=== PATIENT | female | born 1995 | race Caucasian/White ===

== ENCOUNTER → 2018-04-20 13:39 | Outpatient (CLI) | payer BC, SELFPAY ==
[2018-04-20 18:15] LABS: Chlamydia Trachomatis by PCR POSITIVE (Negative); Neisserai gonorrhoeae by PCR Negative (Negative); Probe Check PASS
[2018-04-23 10:02] LABS: HPV Reflexed? NOT INDICATED
== END ==
PROVIDERS: Visit Provider Obstetrics & Gynecology
DX: Z12.4 Encounter for screening for malignant neoplasm of cervix (principal); Z11.3 Encounter for screening for infections with a predominantly sexual mode of transmission
CPT/HCPCS: 87491; 87591; 88175; G0145

== ENCOUNTER → 2018-05-04 14:35 | Outpatient (CLI) | payer BC, SELFPAY ==
[2018-05-04 15:50] LABS: Color, Urine Yellow (Yellow); Glucose, Dipstick Normal (Normal); Ketone-Dipstick Negative (Negative); Leukocyte Esterase-Dipstick 25 /ul (Negative); Nitrite-Dipstick Negative (Negative); Occult Blood-Urine Negative /ul (Negative); Protein-Dipstick Negative (Negative); Urine Bilirubin Dipstick Negative (Negative); Urine Clarity Clear (Clear); Urine Urobilinogen Normal (Normal); Urine pH 6.5 (5.0 - 8.0)
[2018-05-04 15:51] LABS: Absolute Lymphocyte Count 2.16 X10^3/ul (0.83-4.51); Absolute Neutrophil Count 6.7 X10^3/uL (2.0-7.7); Basophil# 0.02 X10^3/uL; Basophil% 0.2 % (0-1); Eosinophil# 0.02 X10^3/uL; Eosinophils% 0.2 % (0-5); Hematocrit 43.2 % (37-47); Lymphocyte # 2.16 X10^3/ul (4.0); Lymphocyte % 22.8 % (19-41); Mean Corp Hgb Conc 32.4 g/gl (32-36); Mean Corpuscular Hgb 29.5 pg (27.0-32.0); Mean Corpuscular Volume 90.9 fL (81-99); Mean Platelet Vol. 10.4 fl (6.2-12.0); Monocyte# 0.54 X10^3/uL; Monocyte% 5.7 % (0-10); Neutrophil # 6.73 X10^3/uL (2.7-7.7); Platelet Count 408 K/mm3 (150-450); RBC Distribution Width CV 14.4 % (11.6-14.6); RBC Distribution Width SD 47.6 fl (35.1-43.9); Red Blood Count 4.75 M/mm3 (4.2-5.4); White Blood Count 9.5 K/mm3 (4.4-11.0)
[2018-05-04 16:10] LABS: POSITIVE COUNT NO; POSITIVE DIFFERENTIAL NO; POSITIVE MORPHOLOGY NO; Thyroid Stim Hormone (TSH) 0.13 uIU/mL (0.358-3.74)
[2018-05-04 16:46] LABS: HIV - WCH Non-Reactive (Nonreactive); Rubella IgG 147.1 IU/mL
[2018-05-04 17:43] LABS: Amphetamine Urine VISTA NEGATIVE (<1000 ng/mL); Barbiturate Urine VISTA NEGATIVE (< 200 ng/mL); Benzodiazepine Urine VISTA NEGATIVE (< 200 ng/mL); Cocaine Urine VISTA NEGATIVE (< 300 ng/mL); Ecstacy Urine VISTA NEGATIVE (< 500 ng/mL); Methadone Urine VISTA NEGATIVE (< 300 ng/mL); PCP Urine VISTA NEGATIVE (< 25 ng/mL); THC Urine VISTA NEGATIVE (< 50 ng/mL); Vista UDS pH Range 7
[2018-05-04 18:41] LABS: Free T3 3.3 pg/mL (2.18-3.98); T4 Free Direct 1.01 ng/dL (0.76-1.46)
[2018-05-06 20:19] LABS: Prenatal RPR NONREACTIVE (NONREACTIVE)
[2018-05-07 09:10] LABS: HEPATITIS B SURFACE AG Negative (Negative); Hep C Antibodies <0.1 s/co ratio (0.0-0.9)
== END ==
PROVIDERS: Visit Provider Obstetrics & Gynecology
DX: Z34.81 Encounter for supervision of other normal pregnancy, first trimester (principal)
CPT/HCPCS: 36415; 80307; 81002; 84439; 84443; 84481; 85025; 86703; 86762; 86803; 87340

== ENCOUNTER → 2018-06-30 | Outpatient (CLI) | payer BC, SELFPAY ==
[2018-06-30 20:34] LABS: Chlamydia Trachomatis by PCR Negative (Negative); Neisserai gonorrhoeae by PCR Negative (Negative); Probe Check PASS; Sample Adequacy Control PASS; Specimen Processing Control PASS
== END | disposition home or self-care (01) ==
LOC: LABSPEC 13:33
PROVIDERS: Visit Provider Obstetrics & Gynecology
DX: Z34.82 Encounter for supervision of other normal pregnancy, second trimester (principal); Z11.3 Encounter for screening for infections with a predominantly sexual mode of transmission
CPT/HCPCS: 87491; 87591

== ENCOUNTER → 2018-09-03 | Outpatient (CLI) | payer BC, SELFPAY ==
[2018-09-03 10:58] LABS: Hematocrit 37.6 % (37-47); Hemoglobin 12.1 g/dl (12.0-15.0); Mean Corp Hgb Conc 32.2 g/gl (32-36); Mean Corpuscular Hgb 28.9 pg (27.0-32.0); Mean Corpuscular Volume 89.7 fL (81-99); Mean Platelet Vol. 10.9 fl (6.2-12.0); Platelet Count 325 K/mm3 (150-450); RBC Distribution Width CV 14.3 % (11.6-14.6); RBC Distribution Width SD 45.8 fl (35.1-43.9); Red Blood Count 4.19 M/mm3 (4.2-5.4); White Blood Count 10.3 K/mm3 (4.4-11.0)
[2018-09-03 11:00] LABS: Scan Indicated on CBC? Y/N NO
[2018-09-03 11:03] LABS: Glucose Challenge Gest 1H 50g 125 mg/dL (70-140)
== END | disposition home or self-care (01) ==
PROVIDERS: Visit Provider Obstetrics & Gynecology
DX: Z34.82 Encounter for supervision of other normal pregnancy, second trimester (principal)
CPT/HCPCS: 36415; 82950; 85027

== ENCOUNTER → 2018-11-12 15:59 | Outpatient (CLI) | payer BC, MEDICAID, SELFPAY | PROVIDERS: Visit Provider Obstetrics & Gynecology | DX: Z36.85 Encounter for antenatal screening for Streptococcus B (principal) | CPT/HCPCS: 87077; 87081; 87186 ==

== ENCOUNTER 2018-11-17 12:15 | Inpatient (IN) | payer BC, MEDICAID, SELFPAY ==
[2018-11-17 13:00] VITALS: BMI 43.2
[2018-11-17] MEDS: Lactated Ringers 1,000 ML 50 ML IV (13:30)
[2018-11-17 13:42] LABS: Absolute Lymphocyte Count 2.18 X10^3/uL (0.83-4.51); Absolute Neutrophil Count 8.3 X10^3/uL (2.0-7.7); Basophil# 0.04 X10^3/uL; Basophil% 0.4 % (0-1); Eosinophil# 0.01 X10^3/uL; Eosinophils% 0.1 % (0-5); Hematocrit 40.2 % (37-47); Hemoglobin 12.9 g/dL (12.0-15.0); Lymphocyte # 2.18 X10^3/ul (4.0); Lymphocyte % 19.2 % (19-41); Mean Corp Hgb Conc 32.1 g/dL (32-36); Mean Corpuscular Hgb 28.9 pg (27.0-32.0); Mean Corpuscular Volume 90.1 fL (81-99); Mean Platelet Vol. 10.9 fl (6.2-12.0); Monocyte# 0.73 X10^3/uL; Monocyte% 6.4 % (0-10); NRBC Flagged by Analyzer 0 % (0-5); Neutrophil # 8.32 X10^3/uL (2.7-7.7); Neutrophil % 73.3 % (47-70); Platelet Count 314 K/mm3 (150-450); RBC Distribution Width CV 15.1 % (11.6-14.6); RBC Distribution Width SD 49.9 fl (35.1-43.9); Red Blood Count 4.46 M/mm3 (4.2-5.4); White Blood Count 11.4 K/mm3 (4.4-11.0)
[2018-11-17] MEDS: miSOPROStol 25 MCG TABLET PO (14:29)
--- NOTE | 2018-11-17 18:24 | PCM.HPOB.BLA ---
History and Physical Date of Admission: 11/17/18 OB HISTORY AND PHYSICAL EXAMINATION History of this : 23 yo female Ab0 with EDC 11/30/2018 by 10 weeks 0 days Ultrasound, presents to Labor and Delivery for induction of labor at 38 1/7 wk with oligohydramnios on ultrasound today in office. KIRSTY 1.2 cm EFW 7# 7 oz. NST reactive. care remarkable for - O positive. Rubella immune. GBS positive. 1.) FOB has an 8 year old son, 2.) TSH low normal free T3 and free T4. 3.) Undecided about MSAFP at NOB visit, declines CF testing. 4.) Hx of depression 5.) history of Chlamydia this , treated. SLIME neg June 2018 Pertinent Past Medical History: As above. Allergies: No Known Drug Allergies Medications: During - azithromycin 500 mg tablet; + DHA 28 mg iron- 975 mcg-200 mg combo pack; Zoloft 50 mg tablet Review of Systems: Non-contributory PHYSICAL EXAMINATION General Appearance: 23 yo female in no acute distress Vital Signs: AF, VSS Heart: RRR without rubs or gallops Lungs: CTA x 2 Breasts: deferred Abdomen: gravid Cervix: 1 cm/ 75/-3 midpostion, midconsistency Presentation: cephalic Fetus: Size: AGA 7# 7 oz. EFW on ultrasound today. Movement: present Heart: 120-130 avg variability Accels. Occasional prolonged accel to 140-150s No regular UCs Impression /Plan: Intrauterine Oligohydramnios with BPP 8/10 (-2 for KIRSTY) Induction of labor. Cytotec planned. Advised potential risk of C/S , intolerance of labor reviewed. Discussed other methods of induction All questions answered to patient's satisfaction and consents signed. OB dept aware of induction. H and P generated at admission date. See progress notes for changes Hanh Emmanuel MD 11/17/18 [id number]
[2018-11-17] MEDS: miSOPROStol 50 MCG TABLET PO (18:52)
--- NOTE | 2018-11-17 19:24 | PN.OBGYN_ITS ---
Subjective: Resting in bed, feels mild cramping, family bedside and supportive Objective: AVSS FHts: 130 baseline, moderate variability with accels, no decels UCs: none Cervix: 1/60/-3 at 1830 per RN - Physical Exam General: Alert, Oriented x3, Cooperative, No apparent distress HEENT: PERRLA, EOMI Oral: Moist Mucosa Neck: Supple Lungs: Clear to auscultation, Normal air movement Cardiovascular: Regular rate, Regular Rhythm Abdomen: Bowel Sounds Present, Soft, Non Tender, Non-Distended, Gravid, Obese Extremities: Capillary Refill Less than 3 Seconds Musculoskeletal: No Tenderness to Palpation of Joints or Extremities Neurological: Cranial nerves II-XII grossly intact, Deep Tendon Reflexes 2+/4 and Symmetrical Psych/Mental Status: Normal Affect, Appropriate, Alert and oriented to time, place, person, mood and affect Weight: 276 lb 0.3 oz Body Mass Index (BMI) 43.2 Laboratory Tests Past 24 Hrs 11/17/18 11/17/18 13:25 13:25 WBC 11.4 H RBC 4.46 Hgb 12.9 Hct 40.2 MCV 90.1 MCH 28.9 MCHC 32.1 RDW Std Deviation 49.9 H RDW Coeff of [place] 15.1 H Plt Count 314 MPV 10.9 Immature Gran % (Auto) 0.600 Neut % (Auto) 73.3 H Lymph % (Auto) 19.2 [place] % (Auto) 6.4 Eos % (Auto) 0.1 Baso % (Auto) 0.4 Absolute Neuts (auto) 8.3 H Absolute Lymphs (auto) 2.18 Nucleated RBC % 0 Blood Type O POSITIVE Antibody Screen NEGATIVE Medical Necessity - Tobacco Use Smoking Status: Former smoker Assessment/Plan Assesment: 23yo at 38w1d gestation BMI >40 Oligohydramnios Cat 1 FHTs Plan: Cytotec has been started Continuous EFM Close observation AROM and Pitocin when Reed score appropriate Anticipate vaginal delivery
[2018-11-17] MEDS: Acetaminophen 325 MG Tablet PO (19:52)
[2018-11-18] MEDS: Acetaminophen 325 MG Tablet PO ×2 (00:07→08:04)
[2018-11-18] MEDS: miSOPROStol 50 MCG TABLET PO (00:45)
[2018-11-18] MEDS: 0.9% Saline Lock 10 ML Syringe IV (04:05)
[2018-11-18] MEDS: Nalbuphine 10 MG/ML Ampul IV ×2 (04:16→08:11)
--- NOTE | 2018-11-18 05:48 | PCM.PN.BLA ---
Progress Note LABOR PROGRESS NOTE 38 2/7 wk oligo AGA Cytotec induction EFM 120-130s with avg variability , accels. UCs - none noted on monitor A/P: 38 2/7 wk Oligo. Will hold Cytotec, Begin Pitocin per protocol as next step. De Dios bulb vs AROM -- exam at am rounds with
[2018-11-18] MEDS: 0.9% Normal Saline 100 ML IV.SOLN. IY (07:25)
--- NOTE | 2018-11-18 07:31 | PCM.PN.BLA ---
Progress Note LABOR INDUCTION 38 2/7 wk EGA Oligo KIRSTY 1.2 cm EFM reassuring all night. 120-130s with accels. Nubain given for sleep, cramping UCs none noted on monitor CX: 1-2/75/-3 Vtx well applied to cervix. De Dios bulb inserted (#20) and 30 cc fluid to inflate balloon Balloon seated beneath vtx and cervix on exam A/P: 38 2/7 wk Induction oligo. Primip. Cytotec overnight Softer cervix noted this am. No other change. De Dios bulb and Pitocin orders given, on chart. Continue induction. Watch progress, descent
[2018-11-18] MEDS: Oxytocin 30 units/NS 500 ml 30 UNITS/500 ML IV.SOLN IV (08:09)
--- NOTE | 2018-11-18 09:52 | PCM.PN.OB ---
Objective: LABOR PROGRESS NOTE: 38 2/7 wk oligo AGA IOL now with cervical mcclure/pitocin following Cytotec cervical ripening FHTs: 120 baseline, moderate variablity with accels, no decels UCs:Q 3-5 minutes with accels, no decels Cervix: 4 /75/-3 with mcclure recently out per RN Pitocin: at 6 mu per RN - Physical Exam Weight: 276 lb 0.3 oz Body Mass Index (BMI) 43.2 Intake and Output for Last 24 Hours 11/16/18 11/17/18 11/18/18 23:59 23:59 23:59 Intake Total 325.00 / 325.00 1600 / 1600 Balance 325.00 / 325.00 1600 / 1600 Laboratory Tests Past 24 Hrs 11/17/18 11/17/18 13:25 13:25 WBC 11.4 H RBC 4.46 Hgb 12.9 Hct 40.2 MCV 90.1 MCH 28.9 MCHC 32.1 RDW Std Deviation 49.9 H RDW Coeff of [place] 15.1 H Plt Count 314 MPV 10.9 Immature Gran % (Auto) 0.600 Neut % (Auto) 73.3 H Lymph % (Auto) 19.2 [place] % (Auto) 6.4 Eos % (Auto) 0.1 Baso % (Auto) 0.4 Absolute Neuts (auto) 8.3 H Absolute Lymphs (auto) 2.18 Nucleated RBC % 0 Blood Type O POSITIVE Antibody Screen NEGATIVE Medical Necessity - Tobacco Use Smoking Status: Former smoker Assessment/Plan A/P: 38 2/7 wk Oligo Early labor Cat 1 FHTs
[2018-11-18] MEDS: Lactated Ringers 500 ML 999 ML IV (10:28)
[2018-11-18] MEDS: Lactated Ringers 1,000 ML 200 ML IV ×2 (12:00→17:34)
[2018-11-18] MEDS: fentaNYL-bupivacaine (epidural) 100 ML BAG EPIDURAL ×2 (12:20→17:34)
--- NOTE | 2018-11-18 13:29 | PCM.PN.OB ---
Subjective: This is a late entry for 11/18/2018 1053 Feeling mild cramping, denies need for epidural; has not taken prescribed Zoloft for several days, does not have own supply with her and is asking for a dose to be provided via hospital pharacy; Stepmother bedside and supportive Objective: FHTs: 120 baseline with moderate variability, accels present, no decels UCs: Q 2-3 minutes - difficult to trace r/t patient body habitus Cervix: 4/75/-2, soft, mid-position Pitocin: 8mu - Physical Exam General: Alert, Oriented x3, No apparent distress Neurological: Cranial nerves II-XII grossly intact Psych/Mental Status: Normal Affect, Appropriate, Alert and oriented to time, place, person, mood and affect Weight: 276 lb 0.3 oz Body Mass Index (BMI) 43.2 Intake and Output for Last 24 Hours 11/16/18 11/17/18 11/18/18 23:59 23:59 23:59 Intake Total 325.00 / 325.00 1601 / 1601 Balance 325.00 / 325.00 1601 / 1601 Laboratory Tests Past 24 Hrs 11/17/18 11/17/18 13:25 13:25 WBC 11.4 H RBC 4.46 Hgb 12.9 Hct 40.2 MCV 90.1 MCH 28.9 MCHC 32.1 RDW Std Deviation 49.9 H RDW Coeff of [place] 15.1 H Plt Count 314 MPV 10.9 Immature Gran % (Auto) 0.600 Neut % (Auto) 73.3 H Lymph % (Auto) 19.2 [place] % (Auto) 6.4 Eos % (Auto) 0.1 Baso % (Auto) 0.4 Absolute Neuts (auto) 8.3 H Absolute Lymphs (auto) 2.18 Nucleated RBC % 0 Blood Type O POSITIVE Antibody Screen NEGATIVE Medical Necessity - Tobacco Use Smoking Status: Former smoker Assessment/Plan Assessment: 38 2/7 wk oligo AGA Group B positive Early labor Cat 1 FHTs Plan: AROMed for small amount of clear fluid IUPC and FSE placed Continue pitocin to maintain adequate labor Continue Group B Prophylaxis May have epidural upon request Zoloft, 50mg PO x1 Close observation Anticipate vaginal delivery
[2018-11-18] MEDS: Sertraline 50 MG Tablet PO (14:23)
--- NOTE | 2018-11-18 14:28 | PCM.PN.OB ---
Subjective: Discussion with patient's RN, patient is comfortable with epidural; stepmother and father remain at bedside and supportive Objective: FHTs: 130 baseline with moderate variability, accels present, no decels UCs: Q 2-4 minutes Cervix: 5/75/-2, soft, mid position at 1300 per RN Pitocin at 8mu per RN - Physical Exam Weight: 276 lb 0.3 oz Body Mass Index (BMI) 43.2 Intake and Output for Last 24 Hours 11/16/18 11/17/18 11/18/18 23:59 23:59 23:59 Intake Total 325.00 / 325.00 2552.77 / 2552.77 Balance 325.00 / 325.00 2552.77 / 2552.77 Laboratory Tests Past 24 Hrs 11/17/18 13:25 Blood Type O POSITIVE Antibody Screen NEGATIVE Medical Necessity - Tobacco Use Smoking Status: Former smoker Assessment/Plan Assessment: 38 2/7 wk oligo AGA Group B positive Cat 1 FHTs Plan: Continue pitocin to maintain adequate labor Continue Group B prophylaxis Close montoring Anticipate vaginal delivery
--- NOTE | 2018-11-18 18:18 | PCM.PN.OB ---
Subjective: Resting in bed, comfortable with epidural; father and stepmother at bedside and supportive Objective: AVSS FHTs: 150 baseline, moderate variability with late decels UCs: Q 1-4 minutes, resolving tachysystole Pitocin: Off Cervix: 4.5/100/-2 per RN at 1658 - Physical Exam General: Alert, Oriented x3, Cooperative Neurological: Cranial nerves II-XII grossly intact Psych/Mental Status: Normal Affect, Appropriate, Alert and oriented to time, place, person, mood and affect Weight: 276 lb 0.3 oz Body Mass Index (BMI) 43.2 Intake and Output for Last 24 Hours 11/16/18 11/17/18 11/18/18 23:59 23:59 23:59 Intake Total 325.00 / 325.00 3602.77 / 3602.77 Balance 325.00 / 325.00 3602.77 / 3602.77 Medical Necessity - Tobacco Use Smoking Status: Former smoker Assessment/Plan Assessment: 38 2/7 wk oligo AGA Group B positive Cat 2 FHTs Plan: Consult with Dr. Emmanuel Keep pitocin off at this time Position changes, IV fluids, and O2 per facemask PRN to maintain FHR stability Continue Group B prophylaxis Close monitoring
--- NOTE | 2018-11-18 18:30 | PCM.PN.BLA ---
Progress Note 38 2/7 wk induction for oligohydramnios Comfortable w/ epidural AVSS Pitocin off due to recurrent late decelerations, tachy IFM: 120-130s earlier, accels variables early decelerations. Periods of inc variability, hypervariability. Then to period of lates during tachysystole. Pitocin off and FHR in 130-140s avg variability and accels. UCs q 3-4 mins Cx: 6/80/-1 at last check A/P: 39 2/7 wk oligo. Pitocin off and position changes, O2 on. Will observe for adequacy of UCs, and for tolerance of continued labor w/o Pitocin >
[2018-11-18] MEDS: Ondansetron 4 MG/2 ML Vial IV (18:58)
--- NOTE | 2018-11-18 19:40 | PCM.PN.OB ---
Subjective: Comfortable with epidural; nausea and vomiting resolving after a dose of Zofran; father and stepmother at bedside and supportive Objective: AVSS FHTs: 145 baseline with accels, and early decels; one deceleration to 115bpm over 2 minutes after an episode of vomiting, back to baseline over the next two minutes, FHR variability maintained; UCs: Q 4-6 minutes Pitocin: off Cervix: /-2 at 1922 per RN - Physical Exam General: Alert, Oriented x3, Cooperative Neurological: Cranial nerves II-XII grossly intact Psych/Mental Status: Normal Affect, Appropriate, Alert and oriented to time, place, person, mood and affect Weight: 276 lb 0.3 oz Body Mass Index (BMI) 43.2 Intake and Output for Last 24 Hours 11/16/18 11/17/18 11/18/18 23:59 23:59 23:59 Intake Total 325.00 / 325.00 3957.44 / 3957.44 Output Total 450 / 450 Balance 325.00 / 325.00 3507.44 / 3507.44 Medical Necessity - Tobacco Use Smoking Status: Former smoker Assessment/Plan Assessment: 38 2/7 wk oligo AGA Group B positive Cat 1 FHTs Plan: Consult with Dr. Emmanuel May restart pitocin, titrate to achieve adequate contraction pattern Continue Group B prophylaxis Close monitoring
--- NOTE | 2018-11-18 21:27 | PCM.PN.OB ---
Subjective: Comfortable with epidural; father bedside and supportive Objective: AVSS FHTs: 140 baseline, moderate variability with late decelerations UCs: Q 4-5 Cervical exam: deferred - Physical Exam General: Alert, Oriented x3, Cooperative Neurological: Cranial nerves II-XII grossly intact Psych/Mental Status: Normal Affect, Appropriate, Alert and oriented to time, place, person, mood and affect Weight: 276 lb 0.3 oz Body Mass Index (BMI) 43.2 Intake and Output for Last 24 Hours 11/16/18 11/17/18 11/18/18 23:59 23:59 23:59 Intake Total 325.00 / 325.00 4007.44 / 4007.44 Output Total 450 / 450 Balance 325.00 / 325.00 3557.44 / 3557.44 Medical Necessity - Tobacco Use Smoking Status: Former smoker Assessment/Plan Assessment: 38 2/7 wk oligo AGA Non reassuring status, inability to tolerate labor Group B positive Cat 2 FHTs Plan: Dr. Emmanuel in Decision for c/section, non emergent
--- NOTE | 2018-11-18 21:30 | DCINST_ITS ---
Discharge Diet: No Restrictions Discharge Activity: May not drive while taking narcotic pain medications., May Shower, May Take a Tub Bath May resume sexual activity in: 4-6 weeks Lifting Restrictions: 20 pounds Additional Activity Instructions:: Nothing in the vagina for 4-6 weeks. You may return to work/school in 6 weeks. Change Dressing in (Days):: 7 Remove Dressing in (days):: 7 Cleanse incision/area with: Soap & Water, Keep Dressing Clean & Dry Additional Instructions: If you experience any of the following, contact your healthcare provider. * Bleeding that soaks a pad every hour for 2 hours * Fever 100.4 or higher * Unrelieved incision or abdominal pain * Swelling, redness, discharge or bleeding from your incision * Problems urinating (including inability to urinate or burning while urinating). * Visual changes * Severe headache * Flu-like symptoms * Pain or redness in one of both of your breasts * Pain, warmth, tenderness or swelling in your legs, especially the calf area * Frequent nausea and vomiting * Symptoms of depression or anxiety If you experience any of the following, call 911 or go to the nearest Emergency Room. * Chest pain * Problems breathing * Seizure activity * Partial or complete paralysis of a body part, slurred speech, weakness or drooping of the face, or a sudden inability to walk or hold your balance Allergies/Adverse Reactions: Allergies nickel Allergy (Verified 11/17/18 13:01) Itching Medications to take at Discharge Vits [Prenatabs FA ] 1 tab PO DAILY 11/17/18 Zoloft 50 mg PO DAILY 11/17/18 Docusate Sodium [Colace] 100 mg PO BID #30 cap 11/18/18 Naproxen [Naprosyn] 250 - 500 mg PO TID PRN PRN #30 tab 11/18/18 Oxycodone [Oxyir] 5 mg PO Q6H PRN PRN 3 Days #15 tablet 11/18/18 The following prescriptions were given: Docusate Sodium [Colace] 100 mg PO BID #30 cap Transmission Status: Pending to [facility][id number] Naproxen [Naprosyn] 250 - 500 mg PO TID PRN PRN #30 tab PRN Reason: Mild-Mod Pain (-07/02) Transmission Status: Pending to [id number] Oxycodone [Oxyir] 5 mg PO Q6H PRN PRN 3 Days #15 tablet PRN Reason: Mod-Severe Pain (4-12/02) Transmission Status: Received by [id number] Follow-Up: Call to make an appointment with your doctor for an incision check in 1-2 weeks. You will also need a 6 week post- follow up appointment. Test results from this visit will be discussed in further detail at your follow- up appointment, if applicable. Please Follow Up With: Juana Emmanuel MD - [phone] When: Call to make an appointment for an incision check in 2 weeks. Primary Care Physician: Care Physician,No Primary [Primary Care Provider] -
--- NOTE | 2018-11-18 22:33 | PCM.OPRPT ---
Report of Operation Date of Procedure: 11/18/18 Pre-Operative Diagnosis: 38 2/7 wk induction OLIGO. intolerance of labor. Late decelerations Post-Operative Diagnosis: Same Surgery/Procedure Performed:: Primary C section Description of Surgical Findings:: FINDINGS: Clear fluid at amniotomy. fonseca viable female deep in maternal pelvis. 6# 15 oz. Ap 9/9 Normal appearing uterus, fallopian tubes and ovaries. reconditioner: Dominga Funes Type of Anesthesia:: Epidural Anesthesiologist: Ollie Ha CRNA Specimen's removed: Placenta Drains: mcclure, clear yellow urine Estimated Blood Loss (mL): 600 Fluids Replaced: LR Description of Procedure: Narrative account: After the risks, benefits and alternatives of the procedure were reviewed with the patient, informed consent was obtained. The patient was taken to the Operating room with an IV running, epidural catheter in place and Mcclure catheter in place. the epidural was dosed to surgical levels. She was positioned in dorsal supine position on the operating table and briefly frog-legged for vaginal vault prep, and then repositioned to dorsal supine position with leftward displacement of the uterus, and prepped and draped in the usual sterile fashion. Once the epidural was deemed adequate, a Pfannenstiel skin incision was created using the knife and the incision was carried down to the rectus fascia using the knife. The fascia was nicked in the midline. The fascial incision was extended bilaterally using curved Pendleton scissors. The superior aspect of the fascial incision was grasped with Giovanny clamps and tented up and the underlying rectus abdominal muscles were dissected free. In a similar manner, the inferior aspect of the facial incision was grasped with Giovanny clamps tented up and the underlying rectus abdominal muscles were dissected free. The rectus abdominis muscles were in the midline and the peritoneum was identified and entered by blunt dissection high in the incision. The peritoneum was stretched laterally and a bladder blade was inserted. A bladder flap was created along the lower uterine segment with Metzenbaum scissors . The uterine incision was then created using Metzenbaum scissors. The operators fingertips were used to extend the uterine incision by blunt dissection in a caudad- cephalad orientation . Clear fluid was noted at amniotomy. The vertex was then delivered atraumatically through the incision. The vertex was deeply wedged into the maternal pelvis with significant caput noted. There was no nuchal cord. The shoulders delivered easily. The OP and nares were bulb suctioned on the abdomen. The cord clamped x two and cut. And the was handed off to the nurse awaiting delivery after briefly showing her to her mother and grandmother. The baby had good tone and cry . A segment of the umbilical cord was doubly clamped for routine cord gas collection. The placenta was then delivered. The uterus was exteriorized and cleared of clots and debris . The uterine incision was repaired with 1 Vicryl in a running locked fashion. A second imbricating layer was then placed, using 1 Monocryl in running nonlocked fashion. Excellent hemostasis was noted. At this point the uterus was returned to the abdominal cavity. The gutters were cleared of clots and debris and the incision at the uterus was inspected. Surgicel was applied along the entire incision for continued hemostasis. The peritoneal edges and rectus abdominis muscles were reapproximated in the midline with a series of vertical mattress stitches of 1 Vicryl. Excellent hemostasis was noted at the subfascial space The fascia was closed in a running nonlocked fashion with a Stratofix. The Subcutaneous fatty tissue was Bovie cauterized as needed for hemostasis. Surgicel was applied at this layer to prevent seroma formation. This layer was then reapproximated in a single layer closure of running 3-0 Vicryl to eliminate space. The skin edges were closed in a Subcuticular stitch of 4-0 Monocryl. The incision was cleansed. Cavilon, Steristrips, and Mepilex dressing were applied to the skin . The patient was then transferred to the recovery room bed in stable condition after tolerating the procedure well. Sponge, lap, needle and instrument counts correct times two. Medications given preop and intraoperatively included: Ancef 2 gm and Azithromycin 500 mg were given IV interpersonal communications professor to the operating room. The patient also received Pitocin given IV after cord clamp, and Toradol 30 mg IV times one. For a complete listing of medications given preop and intraoperatively, please see the anesthesia record. - Admit VTE Documentation VTE Present on Admission: No VTE Mechan Device Prophylaxis: SCD's VTE Pharm Prophylaxis ordered?: No
[2018-11-18] MEDS: Sodium Citrate/Citric Acid 30 ML UDC PO (22:38)
[2018-11-18] MEDS: Cefazolin 2 GM in 0.9% Normal Saline 100 ML IV (22:45)
[2018-11-18 23:45] VITALS: BP 126/72; BP 147/76; PULSE 92; RESP 18; TEMP 37.2; O2SAT 99
[2018-11-18] MEDS: Oxytocin 30 units/NS 500 ml 30 UNITS/500 ML IV.SOLN 167 UNITS IV (23:45)
[2018-11-19] VITALS (27 sets, daily range): BP systolic 118–147; BP diastolic 66–87; PULSE 81–106; RESP 16–18; TEMP 35.9–37.3; O2SAT 95–100
[2018-11-19] MEDS: Lactated Ringers 1,000 ML 100 ML IV ×2 (02:00→11:39)
[2018-11-19] MEDS: Ketorolac 30 MG/ML Syringe IV ×4 (04:58→23:20)
[2018-11-19 05:33] LABS: Hematocrit 34.9 % (37-47); Hemoglobin 11.4 g/dL (12.0-15.0); Mean Corp Hgb Conc 32.7 g/dL (32-36); Mean Corpuscular Hgb 29.5 pg (27.0-32.0); Mean Corpuscular Volume 90.2 fL (81-99); Mean Platelet Vol. 10.7 fl (6.2-12.0); Platelet Count 272 K/mm3 (150-450); RBC Distribution Width CV 15.3 % (11.6-14.6); RBC Distribution Width SD 50.3 fl (35.1-43.9); Red Blood Count 3.87 M/mm3 (4.2-5.4); White Blood Count 19.5 K/mm3 (4.4-11.0)
--- NOTE | 2018-11-19 07:40 | PCM.PN.OB ---
Subjective: 38 2/7 wk induction for oligo. S/P Primary C section for intolerance of labor. Late decelerations with Pitocin Doing well No concerns voiced. Plans to nurse but baby is spitting up a lot now and not nursing well. Has been supplementing with bottle. States minimal pain, soreness. Objective: Sitting up in bed, holding sleeping baby. Her father is in the room for support - Physical Exam General: Alert, Oriented x3, Cooperative, No apparent distress HEENT: Atraumatic, EOMI Oral: Moist Mucosa Abdomen: Soft - Fundus firm , tender c/w postop status, at approx 2 cm inferior to umbilicus Skin: Incision - silver Mepilex CDI. Neurological: Cranial nerves II-XII grossly intact Psych/Mental Status: Normal Affect Vital Signs Temp Pulse Resp BP Pulse Ox 97 F L 94 16 126/66 H 96 11/19/18 06:00 11/19/18 06:00 11/19/18 06:00 11/19/18 06:00 11/19/18 06:00 Oxygen Delivery Method Room Air Weight: 125.2 kg Body Mass Index (BMI) 43.2 Intake and Output for Last 24 Hours 11/17/18 11/18/18 11/19/18 23:59 23:59 23:59 Intake Total 325.00 / 325.00 5160.24 / 5160.24 1540 / 1540 Output Total 750 / 750 500 / 500 Balance 325.00 / 325.00 4410.24 / 4410.24 1040 / 1040 Laboratory Tests Past 24 Hrs 11/19/18 05:05 WBC 19.5 H RBC 3.87 L Hgb 11.4 L Hct 34.9 L MCV 90.2 MCH 29.5 MCHC 32.7 RDW Std Deviation 50.3 H RDW Coeff of [place] 15.3 H Plt Count 272 MPV 10.7 Medical Necessity - Tobacco Use Smoking Status: Former smoker Assessment/Plan 38 2/7 wk induction for oligo. S/P Primary C section for intolerance of labor. Late decelerations with Pitocin Stable postop --increase diet and activity as tolerated. --begin po meds --S/L IV for continued Toradol x 48 hr postop --D/C De Dios for voiding trial today. Leukocytosis. Likely reactive, mild -- repeat CBC POD#2 Social service consult with hx of depression, anxiety -- Zoloft daily Continue routine , postop care.
[2018-11-19] MEDS: Acetaminophen 500 MG Tablet 1000 MG PO (08:53)
[2018-11-19] MEDS: Sertraline 50 MG Tablet PO (09:29)
[2018-11-19] MEDS: Senna/Docusate Sodium 1 Tablet PO (09:29)
[2018-11-19] MEDS: Morphine 4 MG/ML Syringe IV (10:08)
[2018-11-19] MEDS: 0.9% Saline Lock 10 ML Syringe IV (23:21)
[2018-11-20] MEDS: oxyCODONE 5 MG Tablet PO (04:22)
[2018-11-20 04:30] VITALS: BP 129/88; PULSE 95; RESP 18; TEMP 36.6; O2SAT 98
[2018-11-20] MEDS: Ketorolac 30 MG/ML Syringe IV ×2 (06:10→10:35)
[2018-11-20] MEDS: 0.9% Saline Lock 10 ML Syringe IV ×2 (06:11→10:36)
[2018-11-20 06:46] LABS: Hematocrit 35.2 % (37-47); Hemoglobin 11.4 g/dL (12.0-15.0); Mean Corp Hgb Conc 32.4 g/dL (32-36); Mean Corpuscular Hgb 29.3 pg (27.0-32.0); Mean Corpuscular Volume 90.5 fL (81-99); Mean Platelet Vol. 10.3 fl (6.2-12.0); Platelet Count 293 K/mm3 (150-450); RBC Distribution Width CV 15.5 % (11.6-14.6); RBC Distribution Width SD 50.7 fl (35.1-43.9); Red Blood Count 3.89 M/mm3 (4.2-5.4); White Blood Count 13.5 K/mm3 (4.4-11.0)
[2018-11-20 08:00] VITALS: BP 133/86; PULSE 105; RESP 16; TEMP 36.8
--- NOTE | 2018-11-20 09:06 | PCM.PN.OB ---
Subjective: Patient without complaints. Tolerating diet well. Positive flatus. Considering going home later this evening. - Physical Exam Vital Signs Temp Pulse Resp BP Pulse Ox 97.9 F 95 18 129/88 H 98 11/20/18 04:30 11/20/18 04:30 11/20/18 04:30 11/20/18 04:30 11/20/18 04:30 Oxygen Delivery Method Room Air Weight: 276 lb 0.3 oz Body Mass Index (BMI) 43.2 Intake and Output for Last 24 Hours 11/18/18 11/19/18 11/20/18 23:59 23:59 23:59 Intake Total 5160.24 / 5160.24 4305 / 4305 Output Total 750 / 750 1150 / 1150 500 / 500 Balance 4410.24 / 4410.24 3155 / 3155 -500 / -500 Laboratory Tests Past 24 Hrs 11/20/18 06:35 WBC 13.5 H RBC 3.89 L Hgb 11.4 L Hct 35.2 L MCV 90.5 MCH 29.3 MCHC 32.4 RDW Std Deviation 50.7 H RDW Coeff of [place] 15.5 H Plt Count 293 MPV 10.3 Wound is clean, dry, intact. Good urine output. Medical Necessity - Tobacco Use Smoking Status: Former smoker Assessment/Plan Doing well postoperative day #2 status post primary section. Will discharge home later today if patient desires. Home-going instructions given.
--- NOTE | 2018-11-20 09:08 | PCM.DC.BLA ---
Discharge Summary Date of Admission: 11/17/18 Date of Discharge: 11/20/18 Summary: Admission diagnosis: Term intrauterine with oligohydramnios Discharge diagnosis: Term intrauterine with oligohydramnios, failure to progress Procedure: Primary low transverse cervical section HPI: Uneventful care. PE: Unremarkable. Hospital Course: The patient is a 23 year old G 1 P 0 who presented to and D at 38+ weeks gestation for induction for oligohydramnios. She subsequently had a primary for you to progress. Postoperatively she did well demonstrating a stable HGB on POD 1 and bowel fxn by POD 2 at which time it was felt she was ready for discharge. Homegoing Instruction: She was instructed not to drive for several days or if using narcotic pain medication, not to put anything in the vagina for 4 weeks, not to lift >25 lbs for 6 weeks and to call the office for an appointment in 2 weeks and 6 weeks. Discharge Medications: She was given a prescription for Oxycodone and Colace and also plans to use Aleve or Motrin or Tylenol at home as needed for pain and constipation. - Physical Exam Vital Signs Temp Pulse Resp BP Pulse Ox 97.9 F 95 18 129/88 H 98 11/20/18 04:30 11/20/18 04:30 11/20/18 04:30 11/20/18 04:30 11/20/18 04:30 Oxygen Delivery Method Room Air Weight: 276 lb 0.3 oz Body Mass Index (BMI) 43.2 Intake and Output for Last 24 Hours 11/18/18 11/19/18 11/20/18 23:59 23:59 23:59 Intake Total 5160.24 / 5160.24 4305 / 4305 Output Total 750 / 750 1150 / 1150 500 / 500 Balance 4410.24 / 4410.24 3155 / 3155 -500 / -500 Laboratory Tests Past 24 Hrs 11/20/18 06:35 WBC 13.5 H RBC 3.89 L Hgb 11.4 L Hct 35.2 L MCV 90.5 MCH 29.3 MCHC 32.4 RDW Std Deviation 50.7 H RDW Coeff of [place] 15.5 H Plt Count 293 MPV 10.3
[2018-11-20] MEDS: Senna/Docusate Sodium 1 Tablet PO (10:35)
[2018-11-20] MEDS: Sertraline 50 MG Tablet PO (11:16)
[2018-11-20 13:15] VITALS: BP 135/86; PULSE 103; RESP 18; TEMP 36.8
[2018-11-20] MEDS: Acetaminophen 500 MG Tablet 1000 MG PO (14:09)
--- NOTE | 2018-11-20 15:12 | NURSING ---
1430 Pt states she has decided she wants to go home today. States she feels able to take care of herself and her baby. Family visiting and supportive.
[2018-11-20 16:20] VITALS: BP 135/86; PULSE 103; RESP 16; TEMP 36.8
== END 2018-11-20 16:20 | disposition home or self-care (01) | DRG 787 ==
PROVIDERS: Admitting Provider Obstetrics & Gynecology; Visit Provider Obstetrics & Gynecology
DX: O76 Abnormality in fetal heart rate and rhythm complicating labor and delivery (principal); O41.03X0 Oligohydramnios, third trimester, not applicable or unspecified; Z37.0 Single live birth; O99.824 Streptococcus B carrier state complicating childbirth; O99.344 Other mental disorders complicating childbirth; F32.9 Major depressive disorder, single episode, unspecified; Z3A.38 38 weeks gestation of pregnancy; Z87.891 Personal history of nicotine dependence
CPT/HCPCS: 59025; 59050; 85025; 85027; 86850; 86900; 86901; 99218; J7120; A4216; G0378; J0290; J2405

== ENCOUNTER → 2021-09-02 | Outpatient (CLI) | payer OTHER, SELFPAY ==
[2021-09-03 08:36] LABS: HIV - WCH Non-Reactive (Nonreactive); Hepatitis B Surface Antigen Non-Reactive (Nonreactive); Hepatitis C Antibody Non-Reactive (Nonreactive); Syphilis Antibodies Non-reactive
[2021-09-05 00:07] LABS: Chlamydia By Nucleic Acid AMP Negative (Negative)
[2021-09-05 15:47] LABS: HPV Reflexed? NOT INDICATED
[2021-09-05 16:48] LABS: Gonococcus By Nucleic Acid AMP Negative (Negative)
== END | disposition home or self-care (01) ==
LOC: WOBLAB 16:38
PROVIDERS: Visit Provider Obstetrics & Gynecology
DX: Z11.3 Encounter for screening for infections with a predominantly sexual mode of transmission (principal); Z12.4 Encounter for screening for malignant neoplasm of cervix
CPT/HCPCS: 36415; 86703; 86780; 86803; 87340; 87491; 87591; 88175; G0145